=== PATIENT | male | born 1985 | race Caucasian/White ===

== ENCOUNTER 2017-11-22 15:44 | Emergency (ER) | payer SELFPAY ==
[~2017-11-22] VITALS: Ht 167.6 cm; Wt 86.6 kg
[2017-11-22 16:14] VITALS: BP 140/87; Ht 167.6 cm; Wt 86.6 kg
== END 2017-11-22 20:41 | disposition home or self-care (01) ==
LOC: ED 15:44
DX: S61.211A Laceration without foreign body of left index finger without damage to nail, initial encounter (principal); W26.0XXA Contact with knife, initial encounter; Y93.E9 Activity, other interior property and clothing maintenance; Y99.8 Other external cause status; Y92.89 Other specified places as the place of occurrence of the external cause